=== PATIENT | female | born 2000 | race African-American/Black ===

== ENCOUNTER 2021-02-05 10:13 | Outpatient (CLI) | payer OTHER ==
[2021-02-05] MEDS ORDERED: LIDOCAINE 1%/EPINEPHRINE 1:100,000 VIAL (20 ML) INFILTRATI ONE (11:08)
--- NOTE | 2021-02-05 13:40 | Ultrasound Report ---
ULTRASOUND-GUIDED CORE NEEDLE BIOPSY Left BREAST WITH CLIP PLACEMENT COMPARISON: No prior imaging is available. We have a report which describes a mass within the left la teral breast. INDICATION: Palpable left lateral breast mass. FINDINGS: Informed consent was obtained. The mass within the left breast at the 3:00 position, 4 cm from the ni pple, was identified with ultrasound. The overlying skin was cleansed with chloro prep and local anes thesia was obtained with a 1% lidocaine solution. Under ultrasound guidance a 14-gauge spring loaded core biopsy needle was advanced to the lesion. A total of 4 core samples were obtained. A U-shaped bi opsy marker was placed to elva the site of the biopsy. Specimen samples were placed in formalin and s ent to pathology for analysis. Patient tolerated the procedure well and no immediate complications were identified. IMPRESSION: Technically successful ultrasound-guided core biopsy of left breast mass at the 3:[address] acement of a U-shaped biopsy marker. An addendum will be added to this report once pathology results are available. Signer Name: Luis Day MD Signed: 02/05/2021 1:36 PM Workstation Name: [id number]
== END 2021-02-05 10:14 | disposition home or self-care (01) ==
LOC: US 10:13
PROVIDERS: ATTEND Family Medicine
DX: N63.21 Unspecified lump in the left breast, upper outer quadrant (principal); R92.8 Other abnormal and inconclusive findings on diagnostic imaging of breast; Z79.899 Other long term (current) drug therapy
CPT/HCPCS: 88305